=== PATIENT | female | born 1955 | race Caucasian/White ===

== ENCOUNTER → 2018-03-02 | Outpatient (CLI) | payer BC ==
[~2018-03-02] VITALS: Ht 167.6 cm; Wt 64.9 kg
[~2018-03-02] MED LIST: FLEXERIL PO; IBUPROFEN 200200 M1 PO; TYLENOL EXTRA500 MG PO; ZIPSOR25 MG PO
--- NOTE | ~2018-03-02 | HPC ---
[facility] [place] [address] PAIN MANAGEMENT CONSULTATION Name: ARNOLD DEUTSCH Room #: [facility].#: [id number] Admission: 03/02/18 Attend Phys: Jarett Schwab DO Discharge: Date of : 57 Report #: [id number] THIS REPORT FOR: //name// CC: Jarett Perry DATE OF SERVICE: 03/02/2018 REFERRING PHYSICIAN: Ratna Pal DO. CHIEF COMPLAINT: Neck pain, left upper extremity pain and paresthesias. HISTORY OF PRESENT ILLNESS: As you know, the patient is a very pleasant 62-year-old female who began experiencing spontaneous onset of neck pain, left upper extremity pain with paresthesias. The patient states pain began 02/08/2018. She states she was involved in doing some painting of a ceiling prior to the onset of pain, but did not note any injury or trauma during the actual process of painting or any other issues that may have led to symptom development. The patient sought evaluation through her local chiropractor and has been seeing the chiropractor 3 times a week with only transient improvement in symptoms. Due to lack of improvement from a conservative standpoint, the patient sought evaluation through her PCP who provided the patient with a Medrol Dosepak for pain control and anti-inflammatory activity. She did receive some transient improvement, but the symptoms soon returned. Due to lack of improvement with conservative medical management and chiropractic manipulation, the patient was subsequently referred to our clinic for evaluation. The patient does come to us today with x-ray imaging of her cervical spine that was obtained as a chest x-ray. The patient describes pain today as intermittent with constant aching sensation, describes the pain as burning, shooting, aching, throbbing, stabbing, tingling in sensation. She places current pain score 3-4/10, daily average of 6/10, worst pain has been is 8/10. The patient states that changing positions, using a left arm and lying in the bed to try to sleep exacerbates symptoms; ice, rest tends to improve pain. She has been provided Flexeril to be taken for muscle spasming, but this has been ineffective for treating her symptoms. She has been referred to our service, discussed treatment options for possible cervical radiculopathy. PAST MEDICAL HISTORY: Chronic acne, postmenopausal symptoms. PAST SURGICAL HISTORY: 1. Partial hysterectomy without bilateral salpingo-oophorectomy. 2. Vein surgery. 3. Gum surgery. [facility] [address] [place] [address] PAIN MANAGEMENT CONSULTATION Name: ARNOLD DEUTSCH Room #: [facility]#: [id number] Admission: 03/02/18 Attend Phys: Jarett Schwab DO Discharge: Date of : 57 Report #: [id number] 4. Tonsillectomy and adenoidectomy. SOCIAL HISTORY: The patient denies tobacco use. Denies IV or illicit drug use. Admits to an occasional alcoholic beverage. She participates in exercise 5 times a week. She is . She is accompanied by her who is present in room today. She works as a registered nurse. She is working, not receiving workmen's compensation. She is not in litigation in regards to her pain. REVIEW OF SYSTEMS: Positive for decrease in appetite, fatigue and weakness, wearing corrective eyewear, loss of appetite, nocturia, rash and itching, varicose veins, insomnia, neck pain, left upper extremity pain and paresthesias. All other review of systems negative per 12-point review of systems other than those listed in history of present illness. Pain impact score 67/70, which is near complete interference of daily activities secondary to pain. ALLERGIES: LATEX. CURRENT MEDICATIONS: Retin-A gel, apply topically once a day; hormone replacement once a day. IMAGING: X-ray of the chest shows no interstitial issues. There are mild arthritic changes noted in the lower cervical region. PHYSICAL EXAMINATION: VITAL SIGNS: Blood pressure 99/63, pulse 81, respiratory rate 14 and unlabored. The patient is 100% on room air. Height 5 feet 6 inches tall, weight 143 pounds, BMI calculated 23.1. GENERAL: Well-developed, well-nourished, well-hydrated 62-year-old female. She appears her stated age. She is placing current pain score 6-8/10. HEENT: Normocephalic, atraumatic. Pupils equal, round, reactive to light. Extraocular muscles are intact. Sclerae are nonicteric without injection. NEUROLOGIC: Cranial nerves 2-12 grossly intact. Speech is fluent. The patient deemed an excellent historian. LUNGS: Clear, no wheeze, rhonchi or rales. CARDIOVASCULAR: Regular. No appreciable gallop, no rub. ABDOMEN: Soft, nontender, nondistended, normoactive bowel sounds. EXTREMITIES: Show no clubbing, no cyanosis, no edema. MUSCULOSKELETAL: Upper extremity strength is symmetrical 5/5. She is intact to light touch from C5 through T1 dermatomes. Deep tenderness reflexes are symmetrical at biceps, brachialis and triceps. Spurling's test positive left, negative right. Cervical provocation testing is met with increasing pain and reduction in mobility to the left with rotation, lateral flexion of the cervical region. Extension appears to be normal. [address] [place] [address] PAIN MANAGEMENT CONSULTATION Name: ARNOLD DEUTSCH Room #: [facility].#: [id number] Admission: 03/02/18 Attend Phys: Jarett Schwab DO Discharge: Date of : 57 Report #: [id number] ASSESSMENT: 1. Cervical radiculopathy. 2. Cervical spondylosis with radiculopathy. 3. Myofascial pain. PLAN: 1. Based on today's physical exam, history the patient has provided, the description the patient uses in regards to pain as well as the distribution of symptoms, which appears to be a C5 dermatomal distribution based on pain distribution. The likely source of the patient's pain is cervical radiculopathy. The distribution as indicated above would be a C5 distribution. We do have x-ray imaging of the chest, which did provide us with a small amount of cervical distribution, which showed some arthritic changes, but nothing profound enough to be able to determine the specific source of symptoms, though it appears to be more related to a single nerve root on the left. We discussed options for treatment for cervical radiculopathy today, the following was discussed with the patient. We discussed physical therapy, stretching exercises and traction techniques. We discussed medication management, the addition of a neuropathic pain medication and consistent nonsteroidal anti-inflammatory. We discussed cervical epidural injections under fluoroscopic guidance, spinal cord stimulator therapy and surgical options. After reviewing the risks and benefits of all proposed treatment options, the patient chose to move forward with a cervical epidural injection. The patient was advised third libertarian payer restrictions require the authorization be obtained before she could undergo a cervical epidural injection. We will begin the authorization process immediately, this could take anywhere from 4-7 working days, we will begin the process today and contact the patient once we have the approvals to move forward with a cervical epidural injection. 2. The patient comes to us with an x-ray imaging of the cervical spine, which does not provide us with enough information to determine the specific pain generator. We recommend the patient undergo MRI of the cervical spine without contrast. We have written for this MRI to be done as quickly as possible. I did advise the patient that third libertarian payer restrictions will require authorization. We would recommend that she undergo this procedure as quickly as possible. We will review the findings when she returns to undergo cervical epidural injection. We have written for the MRI to be done as quickly as humanly possible. 3. The patient was provided a sample pack of Lyrica 75 mg dose. She will take 1 tab p.o. at bedtime for 3 nights, then double to 2 tabs p.o. at bedtime or 150 mg dose. The patient was advised to watch for somnolence, decreased mental acuity, disorientation, confusion, mental slowing with this medication. If she notes any side effects, contact our clinic. She was given #14 samples of the 75-mg dose. [address] [address] PAIN MANAGEMENT CONSULTATION Name: ARNOLD DEUTSCH Room #: [facility]#: [id number] Admission: 03/02/18 Attend Phys: Jarett Schwab DO Discharge: Date of : 57 Report #: [id number] 4. The patient will discontinue all nonsteroidal anti-inflammatories in place, we will be using Zipsor 25 mg dose 1 tab p.o. b.i.d., I have given the patient samples of this medication today, 25 mg of Zipsor, she will watch for any dyspepsia, worsening blood pressure, lower extremity edema with its use. 5. We will see the patient back in followup visit once we have achieved authorization for cervical epidural injection under fluoroscopic guidance. We are hopeful at that point the patient will also have the MRI imaging so that we can review the cervical imaging to determine if more definitive treatment options might be necessary. At present, we have x-ray imaging, but no MRI imaging which I believe would be quite beneficial. We will see the patient back in followup visit once we have achieved authorization for the cervical epidural injection and review the MRI. 6. I have advised the patient at this point to be careful with chiropractic manipulation. They are not to use any high velocity maneuvers of the cervical region until which time we know the pathology in the cervical region. She can continue to use myofascial release and low velocity treatments, but no high velocity treatment should be applied to the neck until we know the specific pathology that exists. 7. We wish to thank Dr. Pal for the referral of the patient to our clinic. We will keep you apprised of her response to treatment as we address suspected cervical radiculopathy. Again, we wish to thank Dr. Pal for the referral of the patient to our clinic. <ELECTRONICALLY SIGNED> By: Jarett Schwab DO 03/02/18 [id number] Jarett Schwab DO /nt
[2018-03-02 08:05] VITALS: BP 99/63
== END ==
LOC: PAIN 07:01
DX: M47.22 Other spondylosis with radiculopathy, cervical region (principal); M79.1 Myalgia

== ENCOUNTER → 2018-03-09 | Outpatient (CLI) | payer BC ==
[~2018-03-09] VITALS: Ht 167.6 cm; Wt 63.9 kg
--- NOTE | ~2018-03-09 | HPC ---
[facility] [place] [address] PAIN MANAGEMENT CONSULTATION Name: ARNOLD DEUTSCH Room #: [facility].#: [id number] Admission: 03/09/18 Attend Phys: Jarett Schwab DO Discharge: Date of : 57 Report #: [id number] THIS REPORT FOR: //name// CC: Jarett Perry DATE OF SERVICE: 03/09/2018 REFERRING PHYSICIAN: Ratna Pal DO CHIEF COMPLAINT: Neck pain, left upper extremity pain with paresthesias. HISTORY OF PRESENT ILLNESS: As you know, the patient is a 62-year-old female who has returned today in followup visit with ongoing neck pain, left upper extremity pain with paresthesias. As you are aware, we saw the patient per your request for evaluation for suspected cervical radiculopathy. We saw the patient in consultation 03/02/2018, at that time the patient was given the presumptive diagnosis of cervical radiculopathy, cervical spondylosis with radiculopathy. We are basing our findings on physical exam, history she provided, distribution of symptoms and the findings of a chest x-ray, which showed the lower cervical region with fairly significant facet changes and arthritic changes. The patient was evaluated in our clinic and we chose that we would like to get further imaging. We sent the patient for MRI of the cervical spine, but this was refused by the third democrat payer for unknown reasons. Unfortunately, it appears that insurance is once again driving treatment for patients. She returns today in followup visit reporting pain of around 6-7/10. She states she cannot go about her normal activities of daily living due to pain in the neck and radiating down the arm. She has had a complete workup from a cardiovascular standpoint, which proved to be negative. This was her original ER visit. She returns today to begin epidural injections under fluoroscopic guidance, unfortunately she comes to us without the requested imaging study as she did get rejection letter from her insurer. She denies new injury, new trauma or any changes in medical history since our last visit. ALLERGIES: LATEX. CURRENT MEDICATIONS: Retin-A gel apply topically once a day, hormone replacement once a day, Zipsor 25 mg twice a day. SOCIAL HISTORY: The patient denies tobacco, denies IV or illicit drug use, admits to occasional alcoholic beverage. She participates in exercise five days a week. She is . She is accompanied by her who is present in room today. She works as a registered nurse. She is not in litigation [place] [address] PAIN MANAGEMENT CONSULTATION Name: ARNOLD DEUTSCH Room #: [facility].#: [id number] Admission: 03/09/18 Attend Phys: Jarett Schwab DO Discharge: Date of : 57 Report #: [id number] IMAGING: No imaging available. PHYSICAL EXAMINATION: VITAL SIGNS: Blood pressure 94/54, pulse 64, respiratory rate 14 and unlabored, the patient is 100% on room air. GENERAL: Well-developed, well-nourished, well-hydrated, 5 feet 6 inches tall, weight 143 pound female, placing current pain score 6-8/10. HEENT: Normocephalic, atraumatic. Pupils are equal, round, and reactive to light. Extraocular muscles are intact. NEUROLOGIC: Speech is fluent. The patient deemed a good historian. EXTREMITIES: Show no clubbing, no cyanosis, and no edema. MUSCULOSKELETAL: Upper extremity strength is symmetrical 5/5, intact to light touch from C5-T1 dermatomes. Deep tendon reflexes are symmetrical at biceps, brachioradialis and triceps. Spurling's test positive left, negative right. ASSESSMENT: 1. Cervical radiculopathy. 2. Cervical spondylosis with radiculopathy. 3. Myofascial pain. 4. Chronic intractable pain. PLAN: 1. The patient returns today in followup visit where we have discussed at length the possible etiology for her symptoms . The patient is suffering from cervical radiculopathy, though we have been refused to allow the patient to undergo MRI imaging by the third democrat payer. I am not provided any information of why this was refused other than it was just strictly refused. This is quite concerning as we needed this information to determine whether or not more aggressive treatment options would be necessary. She is sent to our clinic for cervical radiculopathy, the findings on the physical exam would indicate cervical radiculopathy and this would be an indication for the patient to undergo MRI to determine if surgical options might be necessary, unfortunately third democrat payer has deemed inappropriate for again unknown reasons. This severely limits our capability of providing the patient with directed patient care. She returns today to discuss options for treatment. 2. We discussed with the patient in generalities the treatment options for cervical radiculopathy. These would include physical therapy, stretching exercises for which the patient is currently involved. We discussed medication management for which the patient does not want to initiate as she does not wish to become reliant on medications long-term. She was advised of the treatments could be cervical epidural injections and surgical options, though again without imaging study, I cannot determine if surgical options would be necessary. She chose to begin with an epidural injection. The patient was advised risks and benefits of a cervical epidural injection, these risks include, but not necessarily limited to bleeding, bruising, [facility] [address] [place] [address] PAIN MANAGEMENT CONSULTATION Name: ARNOLD DEUTSCH [facility]#: [id number] Admission: 03/09/18 Attend Phys: Jarett Schwab DO Discharge: Date of : 57 Report #: [id number] infection, worsening of pain, no relief of pain, also risk of temporary or permanent muscle weakness, temporary or permanent nerve damage, possible paralysis, post-dural puncture headaches and . The patient states understood and wished to proceed. 3. We will see the patient back in followup visit in approximately 31 days, at that time we will review the efficacy of today's cervical epidural injection and determine if next in the series would be necessary. The patient will return at that 31-day dread for a possible next in the series of epidural injections. PROCEDURE NOTE DESCRIPTION OF PROCEDURE: C7-T1 cervical epidural steroid injection under fluoroscopic guidance. After obtaining written consent, the patient was taken back to fluoroscopy suite, placed in prone position with separate pillows under chest and forehead to decrease cervical lordosis. Skin overlying cervical area then prepped and draped in aseptic fashion. C7-T1 cervical interspace identified by AP fluoroscopy. Skin and subcutaneous tissue overlying target site of injection was anesthetized with 3 mL of 1% lidocaine. A 20-gauge 3-1/2-inch Tuohy needle advanced under fluoroscopic guidance towards the epidural space using a paramedian approach. Epidural space identified using loss of resistance to air technique. After negative aspiration for heme or cerebrospinal fluid, 1 mL of Omnipaque injected. A cervical epidurogram was confirmed using both AP and oblique fluoroscopy. After negative aspiration for heme or cerebrospinal fluid, 5 mL of a solution containing 2 mL 40 mg per mL, 80 mg total triamcinolone, 3 mL lidocaine 1% injected slowly. Needle retracted assisted, flushed with 1 mL of 1% lidocaine and removed. Sterile bandage placed over injection site. No new motor deficits present in the upper extremity following procedure. The patient tolerated the procedure well, carefully escorted to recovery room in stable condition. No apparent complications. After meeting discharge criteria, the patient discharged home. <ELECTRONICALLY SIGNED> By: Jarett Schwab DO 03/09/18 [id number] Jarett Schwab DO /nt
[2018-03-09 08:08] VITALS: BP 94/54
== END | disposition home or self-care (01) ==
LOC: PAIN 07:29
DX: M50.10 Cervical disc disorder with radiculopathy, unspecified cervical region (principal); G89.29 Other chronic pain; M79.1 Myalgia; Z91.040 Latex allergy status

== ENCOUNTER → 2018-03-18 | Outpatient (CLI) | payer BC | LOC: RAD 08:08 | DX: R07.9 Chest pain, unspecified (principal); M54.2 Cervicalgia ==

== ENCOUNTER → 2018-03-31 | Outpatient (CLI) | payer BC | LOC: MRI 03-08 16:57 → RAD 09:19 | DX: M47.892 Other spondylosis, cervical region (principal) ==

== ENCOUNTER → 2018-04-08 | Outpatient (CLI) | payer BC | LOC: MRI 01:35 | DX: M50.123 Cervical disc disorder at C6-C7 level with radiculopathy (principal); M41.84 Other forms of scoliosis, thoracic region ==